=== PATIENT | male | born 1940 | race Caucasian/White ===

== ENCOUNTER 2020-05-06 09:21 | Day surgery (SDC) | payer MEDICARE, OTHER ==
[~2020-05-06] VITALS: Ht 195.6 cm; Wt 91.6 kg
[~2020-05-06 09:21] MED LIST: ASPIRIN EC81 MG PO; GLIPIZIDE XL5 MG PO; JANUVIA100 MG PO; LEVOTHYROXINE112 MCG PO; LOSARTAN POTASS50 MG PO; METFORMIN HCL500 M1 PO; MINOCYCLINE HCL50 MG PO; OMEPRAZOLE20 MG PO; PATADAY2.5 ML OPTH; PHOSPHA 250 NE250 MG PO
[2020-05-06] MEDS ORDERED: ALLEGRA ALLERG180 MG PO (09:43)
[2020-05-06] MEDS ORDERED: FLOMAX0.4 MG PO (09:44)
[2020-05-06] MEDS ORDERED: LIPITOR10 MG PO (09:44)
--- NOTE | 2020-05-06 11:36 | NUR ---
05/06/20 1136 [place] 1121- PT ARRIVES TO PACU ALERT AND TALKING WITH STAFF. PT REPORTS NO NAUSEA OR PAIN. RESP EVEN AND UNLABORED. OXYGEN SAT HIGH 90'S TO 100% ON 3L VIA NC. 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 PT DENIES ANY SOB, CHEST PAIN, DIAPHORESIS, DIZZINESS, NAUSEA, OR OTHER SYMPTOMS. 1127- PT PASSING FLATUS. 1131- OXYGEN TITRATED OFF. DR. LINO AT THE BEDSIDE TO TALK WITH THE PT. DR. LINO AWARE OF PT'S PVC'S.
--- NOTE | 2020-05-09 09:09 | OR ---
[facility] [address] [place], [place] [address] Signed DATE OF OPERATION: 05/06/2020 SURGEON: Chace Lino MD PREOPERATIVE DIAGNOSES: 1. History of tubular adenoma in 2014. 2. Chronic constipation. POSTOPERATIVE DIAGNOSIS: Small sessile adenomatous polyp at 50 cm. PROCEDURE: Total colonoscopy to cecum with cold snare polypectomy x1. ANESTHESIA: Intravenous sedation, fentanyl 100 mcg and Versed 4 mg. INDICATION: This 79-year-old white man is patient Dr. Maldonado and has history of polyp excision by ri in 2014. Additionally, a year ago, he underwent parathyroid adenoma excision at [facility] upon referral from Dr. Maldonado and Dr. Phoenix. The patient does have chronic constipation for which he takes MiraLAX with good benefit. He has no family history of colon cancer. 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 He is admitted at this time to undergo colonoscopy for surveillance regarding the polyp as well as his chronic constipation. He understands the risks of bleeding, infection, and perforation related to colonoscopy and wished to proceed. FINDINGS: The prep was excellent. Complete colonoscopy was undertaken to the cecum. There was a sessile polyp at 50 cm which was excised with cold snare technique. There were no other findings of concern. DESCRIPTION OF PROCEDURE: The patient was brought to the endoscopy suite and placed in lateral decubitus position, given intravenous sedation to the point of slurred speech and nystagmus with full cardiopulmonary monitoring. Digital rectal examination was normal. An Olympus video colonoscope was passed in the rectum and manipulated throughout the colon noting a polyp at about 50 cm. This was excised with cold snare technique without Electronically Signed By: CHACE LINO MD 05/09/20 0909 PATIENT NAME: DEDRICK LARIOS OPERATIVE REPORT DATE OF : 44 REPORT #: [id number] PHYSICIAN: CHACE LINO MD PCP: CLARK MALDONADO MD REPORT IS CONFIDENTIAL AND NOT TO BE RELEASED WITHOUT AUTHORIZATION [facility] [address] [place] [id number] Signed problem pathology. The scope was advanced beyond that point, ultimately into the cecum, which showed conventional anatomy including ileocecal valve and appendiceal orifice. The scope was withdrawn from that point and examination throughout showed no sign of abnormality, specifically no diverticula or other polyps, only the initial polyp that was seen at 50 cm. Further withdrawal of the scope allowed for retroflexed view in the rectum, which was also normal. Scope was removed and the patient was taken to the recovery room in good condition. CONCLUDING DIAGNOSIS: Polyp of colon. PLAN: Recommend repeat colonoscopy in 5 years, sooner if clinically indicated. Recommend continued use of MiraLAX for chronic constipation as it does appear to be effective for him. He will return to the ongoing care of Dr. Maldonado. MD NESS Phan/SUMAN /[id number] cc: Clark Maldonado MD Copies: CLARK MALDONADO MD ~ Electronically Signed By: CHACE LINO MD 05/09/20 0909 PATIENT NAME: DEDRICK LARIOS [place] OPERATIVE REPORT DATE OF : 42 REPORT #: [id number] PHYSICIAN: CHACE LINO MD PCP: CLARK MALDONADO MD REPORT IS CONFIDENTIAL AND NOT TO BE RELEASED WITHOUT AUTHORIZATION
--- NOTE | 2020-05-09 15:23 | PATH ---
[facility] [address] [place], [place] [address] Signed SPECIMEN(S): A DESCENDING POLYP AT 50 CM SPECIMEN SOURCE: A. DESCENDING POLYP AT 50 CM CLINICAL HISTORY: Colonoscopy. History of tubular adenoma. MICROSCOPIC DESCRIPTION: Histologic sections of all submitted blocks are examined by light microscopy. These findings, together with the gross examination, support the pathologic diagnosis. FINAL PATHOLOGIC DIAGNOSIS: Descending polyp at 50 cm: - Tubular adenoma (one fragment). JVR:[facility]:C2NR GROSS DESCRIPTION: The specimen, labeled "GT, descending colon polyp at 50 cm," is received in formalin and consists of one zuniga soft tissue fragment that measures 0.2 cm in greatest dimension. The specimen is entirely submitted in cassette (A1). JS (under the direct supervision of a pathologist) The Gross Description was prepared using a voice recognition system. The report was reviewed for accuracy; however, sound-alike word errors, addition and/or deletions may occur. If there is any question about this report, please contact Client Services. PERFORMING LABORATORY: The technical component was performed by [employer], [address] [place] [address] (Senior Energy Analyst: Ingrid Selby MD; CLIA# [id number]). Professional interpretation was performed by [employer], [facility], [address] [place] [address] (CLIA#: [id number]). Diagnostician: Jason Lozada MD Pathologist Electronically Signed 05/09/2020 Copies: PATIENT NAME: DEDRICK LARIOS PATHOLOGY DATE OF : 42 REPORT #: [id number] PHYSICIAN: JEFFREY HAIRSTON PCP: ERICK PETIT MD REPORT IS CONFIDENTIAL AND NOT TO BE RELEASED WITHOUT AUTHORIZATION [address] [address] Signed ~ PATIENT NAME: DEDRICK LARIOS PATHOLOGY DATE OF : 42 REPORT #: [id number] PHYSICIAN: JEFFREY PATHOLOGY PCP: ERICK PETIT MD REPORT IS CONFIDENTIAL AND NOT TO BE RELEASED WITHOUT AUTHORIZATION
== END 2020-05-06 12:10 | disposition home or self-care (01) ==
LOC: DS 09:21 → OPS 09:21 → DS 10:30 → OPS 10:30
PROVIDERS: ATTEND Surgery
PROC: 0DBM8ZZ Excision of Descending Colon, Via Natural or Artificial Opening Endoscopic (ICD-10-PCS; principal; 2020-05-06 10:30)
DX: D12.4 Benign neoplasm of descending colon (principal); F32.9 Major depressive disorder, single episode, unspecified; I10 Essential (primary) hypertension; E11.9 Type 2 diabetes mellitus without complications; K21.9 Gastro-esophageal reflux disease without esophagitis; E03.9 Hypothyroidism, unspecified; E21.5 Disorder of parathyroid gland, unspecified; Z86.010 Personal history of colon polyps; Z79.899 Other long term (current) drug therapy; Z79.82 Long term (current) use of aspirin; Z79.84 Long term (current) use of oral hypoglycemic drugs
CPT/HCPCS: 99153; G0500; J2250; J3010; J7121

== ENCOUNTER 2020-11-01 06:27 | Day surgery (SDC) | payer MEDICARE, OTHER ==
[~2020-11-01 06:27] MED LIST changes: +ACETAMINOPHEN500 MG PO; +ALLEGRA ALLERG180 MG PO; +FAMOTIDINE40 MG; +FLOMAX0.4 MG PO; +GLIPIZIDE10 MG; +HYDROCODON-ACE1 EA10; +IBUPROFEN600 MG PO; +LANTUS SOL100 UNIT/1; +LIPITOR10 MG PO; +MEKINIST2 MG; +NORVASC10 MG PO; +OXYCODON-ACETA1 EAC2 PO; +TAFINLAR75 MG; +ZOLOFT25 MG PO
--- NOTE | 2020-11-01 09:19 | NUR ---
11/01/20 0919 Jennifer Rose 0909 PATIENT ARRIVES TO PACU UNRESPONSIVE TO PAIN. ORAL AIRWAY IN PLACE. MASK AT 6 LITERS. 0915 PATIENT MOVING ARMS. FOLLOWS COMMANDS TO OPEN EYES. ORAL AIRWAY REMOVED. RESP EVEN AND UNLABORED, MASK CONTINUED AT 6 LITERS. 0918 PATIENT SLEEPING, AWAKENS WITH VERBAL STIMULI. RESP EVEN AND UNLABORED, MASK OFF. ROOM AIR SATS >98%.
[2020-11-01] MEDS ORDERED: IBUPROFEN600 MG PO (09:24)
[2020-11-01] MEDS ORDERED: ACETAMINOPHEN500 MG PO (09:25)
[2020-11-01] MEDS ORDERED: OXYCODON-ACETA1 EAC2 PO (09:25)
--- NOTE | 2020-11-01 09:42 | NUR ---
PT ARRIVES TO DS RM 2 FROM PACU AWAKE. PT DENIES ANY PAIN IN LEFT AXILLA WHEN ASKED. PT EDUCATED ABOUT PRESENCE OF TERESA DRAIN ON LEFT SIDE. PT TOLERATES SMALL SIPS OF WATER. LIGHTS DIMMED, CALL LIGHT WITHIN REACH AND PT ENCOURAGED TO USE WITH ANY NEEDS.
[2020-11-01] MEDS ORDERED: PERCOCET 7.5-31 EACH PO (10:04)
--- NOTE | 2020-11-01 10:36 | NUR ---
PT RESTING IN BED AWAKE, SPOUSE AT BEDSIDE. WARM BLANKETS AND BRISA HUGGER PLACED ON WARM. PT STATES LEFT ELBOW HURTS, RATES 3/10 PAIN. PT STATES JOINT PAIN FEELS BETTER WITH WARMTH APPLIED. DC CRITERIA EXPLAINED TO PT, ENCOURAGED TO USE CALL LIGHT WITH URGE TO VOID.
--- NOTE | 2020-11-01 11:16 | NUR ---
PT IS ASSISTED UP OOB WITH STANDBY ASSIST THE THE RESTROOM. HE IS ABLE TO VOID 100ML OF PALE YELLOW URINE. HE AMBUALTES [facility] STANDBY ASSIST BACK TO HIS ROOM. HE DENIES ANY NEEDS AT THIS TIME.
--- NOTE | 2020-11-01 11:52 | NUR ---
PT RESTING IN BED SIPPING ON WATER, SPOUSE AT BEDSIDE. PT RATES PAIN 2-3/10 IN "BACK OF LEFT SHOULDER" PT WOULD LIKE PAIN MEDICATION IN ANTICIPATION OF 1.5 HOUR CAR RIDE HOME.
--- NOTE | 2020-11-01 12:32 | NUR ---
[id number]: DC INSTRUCTIONS PRESENTED TO PT AND SPOUSE, ALL QUESTIONS ADDRESSED. SPOUSE ASSISTS PT DRESSED. PT DC VIA WC TO SPOUSE IN PERSONAL VEHICLE TO HOME. PT WILL CALL DR. LINO ON Saturday11/07/20 WITH TERESA OUTPUT STATUS.
--- NOTE | 2020-11-01 14:09 | NUR ---
PT TAKEN TO OR, SPOUSE GIVEN DIRECTIONS TO CAFETERIA AND ENCOURAGEMENT. WILL FOLLOW NEEDED
--- NOTE | 2020-11-02 21:11 | OR ---
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 PROCEDURE: Left axillary dissection with resection of left axillary mass. ANESTHESIA: General LMA, Rashard Mays CRNA INDICATIONS: This 80-year-old white man is a patient of Clark Maldonado who originally had a melanoma in about 1976. He has had various episodes of metastatic disease including need for left thoracotomy for resection of metastatic melanoma. This was resected at [facility]. The patient recently underwent left axillary lymph node by wa several weeks ago, which proved to be recurrent axillary melanoma. He has been evaluated by Dr. Nolasco and began a series of chemotherapeutic agents on July 18, 2020. He recently was found to have signs of systemic sepsis and inflamed axillary lymph node on the left side, which on imaging study of CT scan performed in [place] on October 20 showed a 7.3 cm necrotic lymph node in the left axilla suggestive of recurrent melanoma with secondary infection. Most likely, this represents recurrent axillary melanoma for which axillary dissection and resection of the mass is recommended to avoid progression and complications related to his upper extremity. The risk of bleeding, infection, neurovascular injury, and other unforeseen complications was reviewed with him in detail. He understands and wished to proceed. FINDINGS: The firm mass was consistent with metastatic recurrent melanoma. Complete axillary dissection was undertaken, preserving the thoracodorsal neurovascular bundle and the long thoracic nerve. The remaining axillary contents did not have obvious metastatic disease, though several lymph nodes were excised in continuity of course with the Electronically Signed By: CHACE LINO MD 11/02/202110 PATIENT NAME: DEDRICK LARIOS OPERATIVE REPORT DATE OF : 42 REPORT #: [id number] PHYSICIAN: CHACE LINO MD PCP: CLARK MALDONADO MD REPORT IS CONFIDENTIAL AND NOT TO BE RELEASED WITHOUT AUTHORIZATION [facility] [address] [place], [place] [address] Signed axillary contents. DESCRIPTION OF PROCEDURE: The patient was brought to the operating room, given a general anesthetic by LMA technique. Preoperative antibiotic Ancef was given. Sequential compression device stockings were used and heparin subcutaneous administered. The left chest and axilla and arm were prepared with a chlorhexidine solution and draped sterilely. The bulky mass was approximately 6-8 cm in size. The previous axillary incision was used. Transverse incision made with a #15 blade. Dissection carried through the dermis with electrocautery. The mass was from the subcutaneous tissue and a superior flap developed initially. Using blunt and electrocautery dissection, soft tissue was ultimately identifying well the mass and maintaining a subcutaneous barrier with it but cephalad to that the axillary packet in the usual way. Sharp dissection was used to define the axillary vein. Dissection included extensive resection of the axillary contents. Identification of thoracodorsal neurovascular bundle was undertaken and that area preserved. Several intercostal brachial nerves were secured to provide complete axillary dissection. Long thoracic nerve was identified and unharmed as well. The mass was inferiorly from the skin and subcutaneous tissue with electrocautery maintaining a fatty border with the neoplasm. Complete excision was undertaken. Irrigation was undertaken with sterile water for its tumor lytic effect. Photographs were taken. A thorough axillary dissection has been accomplished. The specimen was passed for permanent pathology after being bivalved and noting the scar applied central portion. There is no significant pigmentation of the lesion is noted. Through a separate stab incision, a 7 mm flat Manolo drain was cut to the appropriate length and secured to skin with nylon suture. The wound was closed in layers using interrupted 2-0 Vicryl in subcutaneous space and a running subcuticular 3-0 Vicryl for the skin. Steri-Strips were applied as was an Acticoat dressing. The patient tolerated the procedure well. BLOOD LOSS: Less than 20 mL in aggregate. COMPLICATIONS: Sponge, needle, and instrument counts were reported as correct x3. Chace Lino MD Electronically Signed By: CHACE LINO MD 11/02/202110 PATIENT NAME: DEDRICK LARIOS OPERATIVE REPORT DATE OF : 42 REPORT #: [id number] PHYSICIAN: CHACE LINO MD PCP: CLARK MALDONADO MD REPORT IS CONFIDENTIAL AND NOT TO BE RELEASED WITHOUT AUTHORIZATION [facility] [address] [place] [address] Signed NESS/SUMAN /[id number] cc: MD Clark Sotelo MD John T Vetto, MD Copies: NEO AYALA MD, MALCOLM MD VETTO, JOHN T MD ~ Electronically Signed By: CHACE LINO MD 11/02/202110 PATIENT NAME: DEDRICK LARIOS OPERATIVE REPORT DATE OF : 42 REPORT #: [id number] PHYSICIAN: CHACE LINO MD PCP: CLARK MALDONADO MD REPORT IS CONFIDENTIAL AND NOT TO BE RELEASED WITHOUT AUTHORIZATION
--- NOTE | 2020-11-09 13:36 | PATH ---
[facility] [address] [place], [place] [address] Signed SPECIMEN(S): A LEFT AXILLARY CONTENTS SPECIMEN SOURCE: A. LEFT AXILLARY CONTENTS CLINICAL HISTORY: Axillary lymphadenopathy, recurrent malignant neoplastic disease. FINAL PATHOLOGIC DIAGNOSIS: Left axillary contents, dissection: - Soft tissue nodule comprised of necrotic tissue, reactive fibrosis, fat necrosis, and chronic inflammation (6.5 cm). - Eleven lymph nodes with no evidence of malignancy. - See comment. COMMENT: The history of recurrent metastatic melanoma of the left axilla 06/2020 and subsequent treatment with Pembrolizumab is noted. Within this specimen was a previously incised firm mass measuring 6.5 cm in greatest dimension. Upon microscopic examination, the mass was comprised of necrotic cell "ghosts", reactive fibrosis, fat necrosis, and chronic inflammation. Immunohistochemical stains (with appropriately staining controls) for SOX-10 and S-100 were performed and are negative for definitive viable melanoma cells (of note, the previous melanoma from 06/2020, [id number] was positive for SOX10 and S100, but negative for HMB-45 and Melan A). No residual viable tumor was identified in the largest nodule and no metastatic melanoma was identified in the 11 lymph nodes found. As part of [employer]' Quality Improvement Program, this case was reviewed by another member of our pathology staff. NAL:TING:jason:Tushar PEARCE MICROSCOPIC EXAMINATION: Histologic sections of all submitted blocks are examined by light microscopy. These findings, together with the gross examination, support the pathologic diagnosis. GROSS DESCRIPTION: The specimen, labeled "GT," and designated on the requisition "left axillary contents," is received in formalin and consists of multiple portions of yellow-zuniga fatty tissue (10.0 x 10.0 x 5.2 cm in PATIENT NAME: DEDRICK LARIOS PATHOLOGY DATE OF : 42 REPORT #: [id number] PHYSICIAN: JEFFREY PATHOLOGY PCP: ERICK PETIT MD REPORT IS CONFIDENTIAL AND NOT TO BE RELEASED WITHOUT AUTHORIZATION [facility] [address] [place], [place] [address] Signed aggregate) with a previously incised white-zuniga to pink-zungia firm mass (6.5 x 5.5 x 4.5 cm), and 11 possible lymph nodes (ranging in size from 0.3-3.2 cm in greatest dimension). One of the possible lymph nodes (1.5 x 1.3 x 1.0 cm) is sectioned to reveal a brown-zuniga area (0.7 x 0.5 x 0.4 cm), and the remainder of the cut surface is pink-zuniga to hemorrhagic. The tissue surrounding the mass is inked blue and the mass is further sectioned to reveal a variegated yellow zuniga, white-zuniga and pink-zuniga soft to firm cut surface with ill-defined borders. (A1-A3) mass (A4) four possible lymph nodes, intact (A5) two possible lymph nodes, one inked blue, both bisected (A6) one possible lymph node, bisected (A7) one possible lymph node, bisected (A8-A9) one possible lymph node, serially sectioned (A10) one possible lymph node (with brown-zuniga pigmentation), serially sectioned (A11- A15) one possible lymph node, serially sectioned AC (under the direct supervision of a pathologist) Additional sections are submitted in cassette A 16-A 18 at the request of Dr. Carmichael Additional sections are submitted in cassette A 19-A [address] Carmichael The Gross Description was prepared using a voice recognition system. The report was reviewed for accuracy; however, sound-alike word errors, addition and/or deletions may occur. If there is any question about this report, please contact Client Services. PERFORMING LABORATORY: The technical component was performed by [facility] [address] (Concrete Crusher Loader Operator: Ingrid Selby MD; CLIA# [id number]). [facility], [address] [place] [address] (CLIA# [id number]). Diagnostician: Sneha Carmichael MD Pathologist Electronically Signed 11/09/2020 Copies: ~ PATIENT NAME: DEDRICK LARIOS PATHOLOGY DATE OF : 42 REPORT #: [id number] PHYSICIAN: JEFFREY HAIRSTON PCP: ERICK PETIT MD REPORT IS CONFIDENTIAL AND NOT TO BE RELEASED WITHOUT AUTHORIZATION
== END 2020-11-01 12:20 | disposition home or self-care (01) ==
LOC: DS 06:27
PROVIDERS: ATTEND Surgery
PROC: 07T60ZZ Resection of Left Axillary Lymphatic, Open Approach (ICD-10-PCS; principal; 2020-11-01 06:45)
DX: C77.3 Secondary and unspecified malignant neoplasm of axilla and upper limb lymph nodes (principal); L04.2 Acute lymphadenitis of upper limb; C43.59 Malignant melanoma of other part of trunk; I10 Essential (primary) hypertension; E11.9 Type 2 diabetes mellitus without complications; K21.9 Gastro-esophageal reflux disease without esophagitis; E89.0 Postprocedural hypothyroidism; K59.09 Other constipation; F32.9 Major depressive disorder, single episode, unspecified; E21.5 Disorder of parathyroid gland, unspecified; Z79.4 Long term (current) use of insulin; Z79.82 Long term (current) use of aspirin; Z92.21 Personal history of antineoplastic chemotherapy
CPT/HCPCS: 00404; 88307; 88341; 88342; J0690; J1100; J1644; J1885; J2001; J2405; J2704; J3010; J7121

== ENCOUNTER 2023-12-10 05:49 | Day surgery (SDC) | payer MEDICARE, OTHER ==
[2023-12-05 15:40] VITALS: BP 124/75
[~2023-12-10] VITALS: Ht 190.5 cm; Wt 86.8 kg
[~2023-12-10 05:49] MED LIST changes: +ALOGLIPTIN12.5 MG PO; +LACTATED RINGER'S 1,000 ML IV SCH; +MAG6464 MG PO; +METOPROLOL SUCC25 MG PO; +OZEMPIC1 MG/0.71; +PERCOCET 7.5-31 EACH PO; +PROSCAR5 MG PO; +SEROQUEL25 MG PO; +SLOW-MAG71.5 MG PO; +TOPROL XL50 MG PO
[2023-12-10 06:10] VITALS: BP 132/82
[2023-12-10] MEDS ORDERED: BUPIVACAINE HCL 0.25% 50 ML MDV ONE (06:44)
[2023-12-10] MEDS ORDERED: LIDOCAINE HCL 1% 5 ML SDV INJ ONE (07:00)
[2023-12-10] MEDS ORDERED: CEFAZOLIN SODIUM 2 GM/20 ML SYR IV SCH (07:00)
[2023-12-10] MEDS ORDERED: IBLOOD GLUCOSE TEST STRIP 1 EA TEST VI PRN ×2 (07:00→09:15)
[2023-12-10] MEDS ORDERED: HEParin SOD (PORCINE) 5,000 UNIT/0.5 ML SYR SUB-Q SCH (07:00)
[2023-12-10] MEDS ORDERED: ondansetron HCL 4 MG/2 ML VIAL ONE (07:49)
[2023-12-10] MEDS ORDERED: LIDOCAINE HCL 2% 5 ML SDV ONE ×2 (07:49→08:00)
[2023-12-10] MEDS ORDERED: propofoL 200 MG/20 ML VIAL ONE (07:49)
[2023-12-10] MEDS ORDERED: dexmedeTOMIDine HCl 200 MCG/2 ML VIAL ONE (07:49)
[2023-12-10] MEDS ORDERED: SODIUM CHLORIDE 0.9% 20 ML IV ONE (07:50)
[2023-12-10] MEDS ORDERED: Ropivacaine HCl 0.5% 30 ML VIAL ONE (07:50)
[2023-12-10] MEDS ORDERED: ACETAMINOPHEN 1,000 MG/100 ML VIAL ONE (07:50)
[2023-12-10] MEDS ORDERED: ePHEDrine sulfate 50 MG/ML AMP ONE (07:51)
[2023-12-10] MEDS ORDERED: LACTATED RINGER'S 1,000 ML IV ONE (08:12)
[2023-12-10] MEDS ORDERED: fentaNYL citrate 50 MCG/ML SDV IV PRN (09:15)
[2023-12-10] MEDS ORDERED: NALOXONE HCL 0.4 MG SYR IV PRN ×2 (09:15→09:30)
[2023-12-10] MEDS ORDERED: ondansetron HCL 4 MG/2 ML VIAL IV PRN (09:15)
--- NOTE | 2023-12-10 09:16 | NUR ---
12/10/23 0916 Alayna Roblero 0856 PT ARRIVES TO THE PACU. PT NEEDS A SLIGHT JAW THRUST TO MAINTAIN AIRWAY. ORAL AIRWAY IN PLACE WITH O2 MASK AT 6L. PT NONAROUSABLE TO TACTILE STIMULATION. 899 HOB INCREASED AND HEAD TURNED TO THE SIDE AND AIRWAY REMAINS IN PLACE. 901 PT AIRWAY REMOVED AND HOB INCREASED. ON AND OFF JAW THRUST NEEDED TO MAINTAIN AIRWAY. PT WOKE AND OPENED HIS EYES AND RN TRYING TO REORIENT TO PACU. 906 PT WAKES TO TACTILE STIMULI. PT REACHING UP TO FACE. AIRWAY MASK TAKEN OFF. PT IS FIDGETING WITH BLANKET. PT DENIES PAIN. PT IS NOT GRIMACING OR GAURDING SURGICAL SITE. PT IS RESTING WITH EYES CLOSED. PT MAINTAINING AIRWAY AND SATTING IN MID 90S.
[2023-12-10] MEDS ORDERED: ACETAMINOPHEN500 MG PO (09:23)
[2023-12-10] MEDS ORDERED: OXYCODON-ACETA1 EAC2 PO (09:23)
[2023-12-10] MEDS ORDERED: OXYCODONE/APAP 7.5/325 TAB PO PRN (09:30)
[2023-12-10] MEDS ORDERED: ACETAMINOPHEN 500 MG TAB PO PRN (09:30)
[2023-12-10 09:49] VITALS: BP 125/67
[2023-12-10 10:52] VITALS: BP 127/64
--- NOTE | 2023-12-10 11:19 | OR ---
[facility] [address] [place], [place] [address] Signed DATE OF OPERATION: 12/10/2023 SURGEON: Chace Lino MD PREOPERATIVE DIAGNOSIS: Large right inguinal hernia (incompletely reducible). POSTOPERATIVE DIAGNOSIS: Right inguinal hernia, indirect with floor attenuation reducible (non incarcerated ) PROCEDURE: Repair of right inguinal hernia with implantation of Prolene mesh underlay technique and high ligation and excision of indirect hernia sac. ANESTHESIA: General endotracheal, Wendy Daniel, STONE POLISHER HAND and local 10 mL of 0.25% Marcaine with epinephrine as well as preoperative inguinal block. INDICATION: This 83-year-old white man is a patient of Dr. Maldonado and lives in [place], [place]. He is known to me from the past for excision of metastatic melanoma to the left axilla. He is underwent pembrolizumab ( keytruda) adjuvant biologic therapy therapy under the direction of Dr. Nolasco. His initial melanoma was in 1976 and he has had distant metastatic disease to the left chest and elsewhere, all which was resected and currently he has no known evidence of disease. He is noted to have a rather large right inguinal hernia. It was incompletely reducible in the office, though it was now fully reducible. He is admitted to undergo repair of the right inguinal hernia. He understands the risk of bleeding, infection, recurrence and so on. FINDINGS: A very firm and fibrotic chronically inflamed right indirect hernia sac was noted. It had a minor bladder sliding component to it. High ligation of the sac and excision of the sac was undertaken. The cord structures were preserved. The floor was attenuated and implantation of Prolene mesh in an underlay technique was accomplished for repair as well. PROCEDURE IN DETAIL: The patient was brought to the operating room and given a general endotracheal Electronically Signed By: CHACE LINO MD 12/10/23 1119 PATIENT NAME: DEDRICK LARIOS OPERATIVE REPORT DATE OF : 42 REPORT #: [id number] PHYSICIAN: CHACE LINO MD PCP: CLARK MALDONADO MD REPORT IS CONFIDENTIAL AND NOT TO BE RELEASED WITHOUT AUTHORIZATION [facility] [address] [place], [place] [address] Signed anesthetic. A preoperative inguinal block had been undertaken in the preanesthesia area for postoperative analgesic benefit. After clipping and preparing the area with a chlorhexidine solution, small incision was made cephalad to the right pubic tubercle and dissection was carried through the subcutaneous tissue with electrocautery. The external oblique was incised along its fibers and dissected free from the underlying cord structures. The cord was encircled with a [place] drain and elevated. The floor itself was attenuated, though that was not the main source of hernia. Chronic inflammatory change of the cord was noted. Cremasteric muscle fibers were divided circumferentially revealing an indirect hernia sac which was chronically inflamed and thickened. It was dissected free from the cord structures with all due care ultimately opened and inspected internally. There was a minimal bladder fat sliding component medially. The neck of the sac was secured with two separate 2-0 silk sutures and the redundant hernia sac amputated and passed for pathology. An Allis clamp was applied to the tendon of the transversus abdominis and the attenuated fibers of the fascia of the transversalis were incised with electrocautery and properitoneal fat was bluntly . The segment of Prolene mesh was secured in an underlay technique with interrupted 2-0 Prolene sutures. A defect was cut in the graft to accommodate the cord structures and the tails of the graft were secured laterally. The cord was placed into the canal and 10 mL of 0.25% Marcaine with epinephrine was injected locally. The external oblique was reapproximated with running 2-0 Vicryl suture. Carole layer similarly reapproximated with interrupted 2-0 Vicryl and skin closed with running subcuticular 3-0 Vicryl. Steri-Strips were applied as was an Acticoat dressing. Blood loss was minimal. Complications none. MD NESS Phan/MODL /[id number] cc: Clark Maldonado MD Electronically Signed By: CHACE LINO MD 12/10/23 1119 PATIENT NAME: DEDRICK LARIOS [place] OPERATIVE REPORT DATE OF : 42 REPORT #: [id number] PHYSICIAN: CHACE LINO MD PCP: CLARK MALDONADO MD REPORT IS CONFIDENTIAL AND NOT TO BE RELEASED WITHOUT AUTHORIZATION [facility] [address] [place] [address] Signed Copies: CLARK MALDONADO MD ~ Electronically Signed By: CHACE LINO MD 12/10/23 1119 PATIENT NAME: RICDEDRICK OSCEOLA OPERATIVE REPORT DATE OF : 42 REPORT #: [id number] PHYSICIAN: CHACE LINO MD PCP: CLARK MALDONADO MD REPORT IS CONFIDENTIAL AND NOT TO BE RELEASED WITHOUT AUTHORIZATION
[2023-12-10] MEDS ORDERED: LIDOCAINE 2% VISCOUS 6 ML SYR ONE ×2 (12:20→13:00)
[2023-12-10 12:45] VITALS: BP 129/86
[2023-12-10 14:25] VITALS: BP 126/65
--- NOTE | 2023-12-10 16:36 | NUR ---
LE 0945 PATIENT BACK TO DAY SURGERY ROOM 3. VITAL SIGNS COMPLETED. PATIENT DROWSY BUT ORIENTED. BREATHING EQUAL AND UNLABORED. PATIENT DENIES PAIN OR BEING NAUSEATED. SURGICAL SITE CLEAN, DRY AND INTACT. IVF INFUSING. SCD'S ON. PATIENT AT BEDSIDE. CALL LIGHT WITHIN REACH. NO FUTHER NEEDS. LE 1015 PATIENT DRINKING WATER AND EATING CRACKERS. LE 1045 PATIENT ALERT AND ORIENTED. VITAL SIGNS COMPLETED. PATIENT BREATHING EQUAL AND UNLABORED. OXYGEN SATURATIONS ABOVE 90% ON ROOM AIR. PATIENT DENIES PAIN OR BEING NAUSEATED. PATIENT SURGICAL SITE CLEAN, DRY AND INTACT. IVF INFUSING. SCD'S ON. PATIENT DENIES NEEDING TO VOID AT THIS TIME. LE 1200 PATIENT BLADDER SCANNED. SCANNED FOR [address] LINO NOTIFIED. PATIENT STRAIGHT CATH FOR 1050 MLS OF CLEAR AND YELLOW URINE. PATIENT DENIES PAIN OR BEING NAUSEATED AT THIS TIME. SURGICAL SITE CLEAN, DRY AND INTACT. IVF INFUSING. SCD'S ON. LE 1330 PATIENT UNABLE TO VOID AT THIS TIME. DR. LINO NOTIFIED. DR. LINO ORDERED PATIENT TO HAVE TURNER CATH PLACED AND SENT HOME WITH PATIENT. DR. PAGAN TO FOLLOW UP WITH PATIENT. PATIENT FAMILY TO SCHEDULE FOLLOW UP AT THIS TIME. TURNER PLACED STERLIE TECHNIQUE. 850 MLS OF CLEAR AND YELLOW URINE OUT. LE 1425 PATIENT ALERT AND ORIENTED. BREATHING EQUAL AND UNLABORED. OXYGEN SATURATIONS ABOVE 90% ON ROOM AIR. SURGICAL SITE CLEAN, DRY AND INTACT. PATIENT IV D/C'D WNL. PATIENT GIVEN DISCHARGE INSTRUCTIONS AND UNDERSTOOD. NO QUESTIONS AT THIS TIME. PATIENT WHEELED OUT OF FACILITY. PATIENT TO FOLLOW UP WITH DR. CUMMINGS. NO FUTHER NEEDS.
== END 2023-12-10 14:25 | disposition home or self-care (01) ==
LOC: DS 05:49
PROVIDERS: ATTEND Surgery
PROC: 0YU50JZ Supplement Right Inguinal Region with Synthetic Substitute, Open Approach (ICD-10-PCS; principal; 2023-12-10 07:30)
DX: K40.90 Unilateral inguinal hernia, without obstruction or gangrene, not specified as recurrent (principal); F32.9 Major depressive disorder, single episode, unspecified; E11.9 Type 2 diabetes mellitus without complications; K21.9 Gastro-esophageal reflux disease without esophagitis
CPT/HCPCS: J0131; J0690; J1644; J2001; J2405; J2704; J2795; J7121

== ENCOUNTER 2024-09-10 05:47 | Day surgery (SDC) | payer MEDICARE, OTHER ==
[2024-08-19 16:25] VITALS: BP 117/77
--- NOTE | 2024-08-24 06:25 | NUR ---
0605-NOTED PTS UA RESULTS INDICATIVE OF POSSIBLE UTI AND CULTURE RESULTS PRINTED AND CALLED TO DR. PAGAN. INFORMED DR. PAGAN OF IDENTIFICATION OF BACTERIA STAPHLOCOCCUS AEREOUS WITH GREATER THAN 100,OOO GROWTH REPORTED. SENSITIVITY REPORT NOT AVAILABLE AT THIS TIME. DR. PAGAN WITH ORDER TO CANCEL SURGERY AND NOTIFY PT THAT ONCE SENSITIVITY REPORT IS AVAILABLE, THAT SHE WILL SEND RX TO [place] THEN. PT AND FAMILY UPDATED. PT REDRESSED AND LEFT AMBULATORYW/DAUGHTER AND ALL PERSONAL BELONGINGS AT APPROX 0620.
--- NOTE | 2024-08-24 07:35 | NUR ---
PT NOT AVAILABLE FOR VISIT. PROVIDED PRAYER.
[~2024-09-10] VITALS: Ht 190.5 cm; Wt 80.0 kg
[~2024-09-10 05:47] MED LIST changes: +ASPIRIN81 MG PO; +CEFAZOLIN SODIUM 2 GM/20 ML SYR IV SCH; +IBLOOD GLUCOSE TEST STRIP 1 EA TEST VI PRN; +IRBESARTAN150 MG PO; +LIDOCAINE HCL 1% 5 ML SDV INJ ONE
[2024-09-10 06:06] VITALS: BP 158/87
[2024-09-10] MEDS ORDERED: BUPIVACAINE HCL 0.25% 50 ML MDV ONE (07:00)
[2024-09-10] MEDS ORDERED: IBLOOD GLUCOSE TEST STRIP 1 EA TEST VI PRN ×2 (07:00→07:30)
[2024-09-10] MEDS ORDERED: CEFAZOLIN SODIUM 2 GM/20 ML SYR IV SCH (07:00)
[2024-09-10] MEDS ORDERED: LIDOCAINE HCL 1% 5 ML SDV INJ ONE (07:00)
[2024-09-10] MEDS ORDERED: ACETAMINOPHEN 1,000 MG/100 ML VIAL ONE (07:20)
[2024-09-10] MEDS ORDERED: LIDOCAINE HCL 2% 5 ML SDV ONE (07:20)
[2024-09-10] MEDS ORDERED: propofoL 200 MG/20 ML VIAL ONE (07:20)
[2024-09-10] MEDS ORDERED: fentaNYL citrate 50 MCG/ML SDV IV PRN (07:30)
[2024-09-10] MEDS ORDERED: NALOXONE HCL 0.4 MG SYR IV PRN (07:30)
[2024-09-10] MEDS ORDERED: ondansetron HCL 4 MG/2 ML VIAL IV PRN ×2 (07:30→08:00)
[2024-09-10] MEDS ORDERED: MORPHINE SULFATE 4 MG/ML VIAL IV PRN (08:00)
[2024-09-10] MEDS ORDERED: TRAMADOL HCL 50 MG TAB PO PRN (08:00)
[2024-09-10] MEDS ORDERED: ePHEDrine sulfate 50 MG/ML AMP ONE (08:23)
[2024-09-10] MEDS ORDERED: fentaNYL citrate 100 MCG/2 ML VIAL ONE (08:39)
[2024-09-10] MEDS ORDERED: LACTATED RINGER'S 1,000 ML IV ONE (08:40)
[2024-09-10 09:46] VITALS: BP 135/82
--- NOTE | 2024-09-10 09:55 | NUR ---
0945 PT ARRIVED TO DAY SURGERY ROOM 4 FROM PACU VIA STREACHER. REPORT TAKEN FROM VANNESA CARRERA. PT RESTING IN BED WITH TOWEL OVER FACE, PT HAD STATED THAT HE FELT DIZZY, BUT THIS IS COMMON FOR HIM. PT REPORTS NO PAIN AT THIS TIME. PT REPORTS NO NAUSEA AT THIS TIME. SUPRAPUBIC CATHETER IN PLACE AND DRAINING, 400 MLS OF BARNEY URINE WITH TINY CLOTS IN TUBE. VITALS TAKEN. 0950 PT AT BEDSIDE. CALL LIGHT WITHIN REACH. SNACKS AND WATER AT BEDSIDE.
--- NOTE | 2024-09-10 10:00 | NUR ---
09/10/24 Alayna Esparza 0908- PT ARRIVES TO THE PACU WITH A NATURAL AIRWAY. A CHIN LIFT IS NEEDED TO MAINTAIN HIS AIRWAY. BREATHING IS EVEN AND UNLABORED. PT HAS A MASK ON WITH 6L OF O2. ABDOMEN IS SOFT AND NON DISTENDED. SURGICAL SITE IS CDI. SUPRAPUBIC CATHETER IS DRAINING PINK URINE, WITH NO CLOTS PRESENT. LR IS INFURING IN HIS RIGHT HAND. ALL MONITORS PUT IN PLACE. VSS. 0913- PT HEAD IS ADJUSTED AND CHIN LIFT IS NO LONGER NEEDED. BREATHING IS EVEN AND ENLABORED. SOME SNORING IS NOTED. 0919- O2 TURNED OFF AND REMOVED. PT IS REACHING TOWARD HIS FACE AND LIFTING HIS HEAD OFF THE PILLOW SLIGHTLY. 0920- PT DENIES PAIN AND NAUSEA. 0930- PT REPORTS NO PAIN OR NAUSEA. PT IS MAINTAINING SATS ABOVE 95% ON RA. NO APPARENT DISTRESS. VSS. 0945- PT IS TRANSFERED TO DAY SURGERY. BEDSIDE REPORT GIVEN TO TENA CARRERA. NO QUESTIONS OR CONCERNS. SURGICAL SITE ASSESSED TOGETHER THAT SHOWED SOME SLIGHT SHADOWING AROUND THE CATHETER. IS BROUGHT INTO THE ROOM. BED IS IN THE LOWEST POSITION, AND CALL LIGHT IN REACH. CARE TURNED OVER AT THIS TIME.
[2024-09-10] MEDS ORDERED: CEPHALEXIN500 MG PO (10:13)
[2024-09-10] MEDS ORDERED: TRAMADOL HCL50 MG PO (10:14)
--- NOTE | 2024-09-10 11:19 | NUR ---
1105 DISCHARGE INFORMATION GONE OVER WITH PT AND . NO QUESTIONS AT THIS TIME. BAG WITH LEG BAG GIVEN TO PT, DISCUSSED NOT USING LEG BAG FOR TWO WEEKS. 1108 IV DISCONTINUED FOR DISCAHRGE 1110 PT GETTING DRESSED WITH RN ASSISTANCE AND ASSISTANCE. PT GOT LIGHT HEADED WHEN STANDING, PT STATES THAT THIS HAPPNES TO HIM MOST TIMES HE GETS UP FROM A BED.
--- NOTE | 2024-09-10 11:37 | NUR ---
1128 PT ABLE TO AMBULATE TO WHEELCHAIR, PT WHEELED TO THE FRONT OF THE HOSPITAL TO PT'S 'S CAR.
[2024-09-10] MEDS ORDERED: SEVOFLURANE 250 ML BTL INH ONE (15:45)
== END 2024-09-10 11:28 | disposition home or self-care (01) ==
LOC: DS 05:47
PROVIDERS: ATTEND Urology
PROC: 0T9B00Z Drainage of Bladder with Drainage Device, Open Approach (ICD-10-PCS; principal; 2024-09-10 07:30)
DX: R33.8 Other retention of urine (principal); N40.1 Benign prostatic hyperplasia with lower urinary tract symptoms; N13.8 Other obstructive and reflux uropathy; I12.9 Hypertensive chronic kidney disease with stage 1 through stage 4 chronic kidney disease, or unspecified chronic kidney disease; E11.22 Type 2 diabetes mellitus with diabetic chronic kidney disease; N18.30 Chronic kidney disease, stage 3 unspecified; E03.9 Hypothyroidism, unspecified; E89.2 Postprocedural hypoparathyroidism; C43.9 Malignant melanoma of skin, unspecified; C79.9 Secondary malignant neoplasm of unspecified site; Z79.84 Long term (current) use of oral hypoglycemic drugs; Z79.82 Long term (current) use of aspirin; Z79.890 Hormone replacement therapy; Z79.85 Long-term (current) use of injectable non-insulin antidiabetic drugs; Z79.899 Other long term (current) drug therapy; Z91.048 Other nonmedicinal substance allergy status
CPT/HCPCS: 00860; J0131; J0690; J2003; J2704; J3010; J7121